=== PATIENT | female | born 1980 | race Two or more races ===

== ENCOUNTER 2021-05-08 01:47 | Emergency (ER) | payer SELFPAY ==
[~2021-05-08] VITALS: Ht 152.4 cm; Wt 85.0 kg
[2021-05-08] MEDS ORDERED: ONDANSETRON 2MG/ML, 2ML IVPush ONE (02:00)
[2021-05-08] MEDS ORDERED: SODIUM CHLORIDE FLUSH 10ML SYR IVF ONE (02:00)
[2021-05-08] MEDS ORDERED: SODIUM CHLORIDE 0.9% 1,000ML IVBOLUS ONE (02:00)
[2021-05-08] MEDS ORDERED: ONDANSETRON 2MG/ML, 2ML ONE (02:15)
[2021-05-08] MEDS ORDERED: MORPHINE SULFATE 4 MG/ML, 1ML ONE ×3 (02:16→03:28)
[2021-05-08] MEDS ORDERED: LORazepam 2 MG/ML, 1ML ONE (02:36)
--- NOTE | 2021-05-08 02:45 | NUR ---
Downtime order from GABRIEL Negrete: Morphine 4mg IV Zofran 4mg IV Ativan 0.5mg IV NS 1 Liter
[2021-05-08 02:47] LABS: ALANINE AMINOTRANSFERASE 32 U/L (12-78); ALBUMIN 3.9 g/dL (3.4-5.0); ALKALINE PHOSPHATASE 99 U/L (45-117); ANION GAP 9 mmol/L (5-15); BILIRUBIN,TOTAL 0.3 mg/dL (0.2-1.0); CALCIUM 8.7 mg/dL (8.5-10.1); CHLORIDE 106 mmol/L (98-107); CREATININE 0.73 mg/dL (0.55-1.02); TOTAL PROTEIN 8.3 g/dL (6.4-8.2)
[2021-05-08 02:57] LABS: BASOPHILS % (AUTO) 1 % (0-1); EOSINOPHILS % (AUTO) 1 % (1-7); LYMPHOCYTES % (AUTO) 27 % (22-44); MEAN CORPUSCULAR HEMOGLOBIN 28.3 pg (27.0-34.8); MEAN CORPUSCULAR HGB CONC 33.3 g/dL (32.4-35.8); MEAN PLATELET VOLUME 8.7 fL (7.4-10.4); MONOCYTES % (AUTO) 4 % (2-9); NEUTROPHILS % (AUTO) 68 % (42-75); PLATELET COUNT 284 x10^3/uL (130-400); RED BLOOD COUNT 4.21 x10^6/uL (3.82-5.3); RED CELL DISTRIBUTION WIDTH 14.1 % (9.6-15.2)
[2021-05-08] MEDS: MORPHINE SULFATE 4 MG/ML, 1ML IVPush PRN ×2 (02:57→03:30)
[2021-05-08] MEDS ORDERED: LORazepam 2 MG/ML, 1ML IVPush ONE (03:00)
--- NOTE | 2021-05-08 03:00 | NUR ---
Pt now appears more comfortable after total 8mg morphine and 0.5mg ativan, placed on suppl o2, IVF infusing. Waiting for u/s and ct, on cont pulse ox, b/p. family at bedside. AIDET provided.
--- NOTE | 2021-05-08 03:09 | NUR ---
Pt moaning again from pain, HR 70 o2sat [address] to expidite exam, tech coming now.
--- NOTE | 2021-05-08 03:21 | NUR ---
In CT now.
--- NOTE | 2021-05-08 03:26 | NUR ---
Back from CT, pt still moaning, grimacing from abd pain. VSS. Will request additional meds.
--- NOTE | 2021-05-08 03:33 | NUR ---
Remedicated with 4mg morphine, pt is less anxious post ativan but still 8/10 pain. Pain is now localized to Left mid abdomen, abd is soft.
--- NOTE | 2021-05-08 03:46 | NUR ---
Ultrasound at bedside now.
[2021-05-08 04:24] VITALS: BP 110/70
--- NOTE | 2021-05-08 04:24 | NUR ---
Pt up ambulates to bathroom, urine sample collected and sent. VSS, RR equal and unlabored. AIDET provided.
[2021-05-08 04:34] LABS: MICROSCOPIC NOT IND
--- NOTE | 2021-05-08 04:53 | NUR ---
Pt still reporting left abdomen pain, waiting for CT/ultrasound results.
--- NOTE | 2021-05-08 05:13 | NUR ---
Pt sleeping, RR equal and unlabored. VSS. Waiting for CT read.
--- NOTE | 2021-05-08 05:30 | NUR ---
[facility] given discharge instructions and they have confirmed that they understand the instructions. Patient ambulatory with steady gait. NAD, all questions answered appropriately, denies additional needs at this time. No personal belongings left in room after discharge.
== END 2021-05-08 05:45 | disposition home or self-care (01) ==
LOC: ED 05:30
DX: K29.00 Acute gastritis without bleeding (principal)
CPT/HCPCS: 36415; 74176; 76830; 80053; 81003; 84703; 85025; 96361; 96374; 96375; 96376; 99285; J2060; J2270; J2405; J7030